=== PATIENT | female | born 1975 | race Caucasian/White ===

== ENCOUNTER 2017-07-09 19:15 | Emergency (ER) | payer MEDICAID, OTHER, SELFPAY ==
[~2017-07-09] VITALS: Ht 167.6 cm; Wt 58.6 kg
[2017-07-09 19:19] VITALS: BP 111/76
[2017-07-09] MEDS ORDERED: IBUPROFEN 200 MG TABLET PO ONE (21:00)
[2017-07-09] MEDS ORDERED: IBUPROFEN 200 MG TABLET ONE (21:14)
== END 2017-07-09 21:20 | disposition home or self-care (01) ==
LOC: ED 21:14
DX: S80.02XA Contusion of left knee, initial encounter (principal); S80.01XA Contusion of right knee, initial encounter; J45.909 Unspecified asthma, uncomplicated; F17.210 Nicotine dependence, cigarettes, uncomplicated; Z59.0 Homelessness; W00.0XXA Fall on same level due to ice and snow, initial encounter; Y93.89 Activity, other specified; Y99.9 Unspecified external cause status; Y92.89 Other specified places as the place of occurrence of the external cause
CPT/HCPCS: 99284

== ENCOUNTER 2017-10-08 18:26 | Emergency (ER) | payer MEDICAID ==
[~2017-10-08] VITALS: Ht 167.6 cm; Wt 55.0 kg
[~2017-10-08 18:26] MED LIST: ALBUTEROL INH
[2017-10-08] MEDS ORDERED: ONDANSETRON ODT 4 MG ONE (19:15)
[2017-10-08] MEDS ORDERED: FAMOTIDINE 20 MG TABLET ONE (19:15)
[2017-10-08] MEDS ORDERED: MAALOX/HYOSCYAMINE/LIDOCAINE 45 ML BTL ONE (19:15)
[2017-10-08 19:30] LABS: BASOPHILS # (AUTO) 0.08 x10^3/uL (0-0.1); BASOPHILS % (AUTO) 1 % (0-1); EOSINOPHILS # (AUTO) 0.25 x10^3/uL (0-0.4); EOSINOPHILS % (AUTO) 2 % (1-7); LYMPHOCYTES % (AUTO) 22 % (22-44); MD NO; MEAN CORPUSCULAR HEMOGLOBIN 30.1 pg (27.0-34.8); MEAN CORPUSCULAR HGB CONC 33.5 g/dL (32.4-35.8); MEAN CORPUSCULAR VOLUME 89.8 fL (80-100); MEAN PLATELET VOLUME 8.9 fL (7.4-10.4); MONOCYTES # (AUTO) 0.79 x10^3/uL (0.2-0.8); MONOCYTES % (AUTO) 6 % (2-9); NEUTROPHILS % (AUTO) 69 % (42-75); PLATELET COUNT 327 x10^3/uL (130-400); RED CELL DISTRIBUTION WIDTH 14.1 % (9.6-15.2)
[2017-10-08] MEDS ORDERED: FAMOTIDINE 20 MG TABLET PO ONE (19:30)
[2017-10-08] MEDS ORDERED: ONDANSETRON ODT 4 MG PO ONE (19:30)
[2017-10-08] MEDS ORDERED: MAALOX/HYOSCYAMINE/LIDOCAINE 45 ML BTL PO ONE (19:30)
[2017-10-08 19:44] LABS: ALANINE AMINOTRANSFERASE 21 U/L (12-78); ALBUMIN 3.1 g/dL (3.4-5.0); ANION GAP 5 mmol/L (5-15); CALCIUM 8.5 mg/dL (8.5-10.1); CHLORIDE 109 mmol/L (98-107); CREATININE 0.79 mg/dL (0.55-1.02)
[2017-10-08 19:48] LABS: ALKALINE PHOSPHATASE 43 U/L (45-117); BILIRUBIN,TOTAL 0.2 mg/dL (0.2-1.0); TOTAL PROTEIN 5.9 g/dL (6.4-8.2)
[2017-10-08 20:27] VITALS: BP 110/74
[2017-10-08 20:51] LABS: MICROSCOPIC AUTO
[2017-10-08 20:54] LABS: CULTURE INDICATED? NO
== END 2017-10-08 20:29 | disposition home or self-care (01) ==
LOC: ED 19:53
DX: R10.13 Epigastric pain (principal); R10.33 Periumbilical pain; D72.829 Elevated white blood cell count, unspecified; J45.909 Unspecified asthma, uncomplicated; Z88.0 Allergy status to penicillin
CPT/HCPCS: 36415; 80053; 81001; 83690; 84703; 85025; 99284; Q0162